=== PATIENT | female | born 1995 | race Two or more races ===

== ENCOUNTER 2024-09-22 11:06 | Inpatient (IN) | payer MEDICAID, SELFPAY ==
[2024-09-21 12:03] LABS: Basophils # (Auto) 0.0 Thou/mm3 (0.0-0.2); Basophils % (Auto) 0 % (0-2.5); Eosinophils # (Auto) 0.0 Thou/mm3 (0.0-0.5); Eosinophils % (Auto) 0 % (0-10); Hematocrit 38.6 % (36.0-46.0); Hemoglobin 13.5 g/dL (12.0-16.0); Immature Granulocytes Auto 0.08 Thou/mm3 (0.00-0.00); Lymphocytes # (Auto) 1.8 Thou/mm3 (1.0-4.8); Lymphocytes % (Auto) 22 % (10-50); Mean Corpuscular HGB Conc 35.0 g/dl (31.0-37.0); Mean Corpuscular Hemoglobin 30.2 pg (25.0-35.0); Mean Corpuscular Volume 86 fL (80-100); Monocytes # (Auto) 0.5 Thou/mm3 (0.0-0.8); Monocytes % (Auto) 6 % (0-12); Neutrophils # (Auto) 6.1 Thou/mm3 (1.8-7.7); Neutrophils % (Auto) 71 % (37-80); Nucleated Red Blood Cell # 0.00 Thou/mm3 (0.00-0.00); Nucleated Red Blood Cell % 0 /100 WBC (0); Platelet Count 186 Thou/mm3 (140-440); RDW Standard Deviation 45.9 fL (36.4-46.3); Red Blood Count 4.47 Miln/mm3 (4.00-5.20); White Blood Count 8.5 Thou/mm3 (3.6-11.0)
[2024-09-21 12:18] LABS: INR 1.0 (0.9-1.3); Partial Thromboplastin Time 27.0 Seconds (22.0-36.0); Prothrombin Time 11.1 Seconds (9.0-12.2)
[2024-09-21 12:36] LABS: Alanine Aminotransferase 12 U/L (10-49); Albumin, Serum 4.2 gm/dL (3.5-5.0); Albumin/Globulin Ratio 1.4 (1.2-2.2); Alkaline Phosphatase 179 U/L (46-116); Anion Gap 11 (7-16); Aspartate Amino Transferase 20 U/L (0-34); BUN/Creatinine Ratio 11 Ratio (12-20); Bilirubin,Total 0.6 mg/dL (0.3-1.2); Blood Urea Nitrogen 8 mg/dL (9-23); Calcium 9.5 mg/dL (8.3-10.6); Calcium (Corrected) 9.5 mg/dL (8.5-10.1); Carbon Dioxide 21.9 mMol/L (20.0-31.0); Chloride 107 mMol/L (98-107); Creatinine (Component) 0.7 mg/dL (0.6-1.3); Globulin 2.9 gm/dL (2.3-3.5); Glucose 95 mg/dL (74-106); Osmolality,Calculated 277 (275-295); Potassium 4.1 mMol/L (3.4-5.1); Sodium 140 mMol/L (136-145); Total Protein 7.1 gm/dL (5.7-8.2); eGFR > 60 See Note
[2024-09-21 12:53] LABS: Syphilis Nonreactive (Nonreactive)
[2024-09-22] VITALS (15 sets, daily range): BP systolic 91–119; BP diastolic 56–78; PULSE 61–116; RESP 14–21; TEMP 36.4–36.8; O2SAT 95–98; BMI 30.5; BMI 31.5
--- NOTE | 2024-09-22 06:15 | ESHP_ITS ---
RE: KELLEE PEÑA : 1995 DATE OF ADMISSION: 09/22/2024 DATE OF SURGERY: 09/22/2024 HISTORY OF PRESENT ILLNESS: This is a 29-year-old 2, para 1-0-0-1 with due date of 09/29/2024 with intrauterine at 39 weeks and 0 days, who presents for repeat delivery. The patient reports normal movement. She denies any leaking or bleeding. She reports occasional contractions. care was complicated by gestational diabetes mellitus, diet controlled. ALLERGIES: NO KNOWN DRUG ALLERGIES. MEDICATIONS: multivitamin 1 p.o. daily. 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 PAST SURGICAL HISTORY: delivery in 2019. SOCIAL HISTORY: She denies any alcohol, drug use, or smoking. OBSTETRIC HISTORY: 01/10/2020, 40 weeks. delivery, 6-pound male, complicated by blood transfusion. FAMILY HISTORY: Denies. REVIEW OF SYSTEMS: She denies any chest pain, palpitations, cough, fever, shortness of breath, or lower extremity pain. PHYSICAL EXAMINATION: VITAL SIGNS: Blood pressure 125/69, heart rate 88, respirations 18, temperature 98.2, weight 172 pounds. HEENT: Oropharynx and sclerae are clear. LUNGS: Clear to auscultation bilaterally. HEART: Regular rate and rhythm. ABDOMEN: Old Pfannenstiel scar noted, gravid, term size. EXTREMITIES: Nontender. SKIN: No gross rashes or lesions. NEUROLOGIC: No focal deficit. ASSESSMENT: Intrauterine at 39 weeks on 09/22/2024. Previous delivery, elects repeat delivery. PLAN: Repeat delivery. Informed consent was obtained. The patient was made aware of the risks, complications, alternatives, and benefits of the proposed procedure and she agrees. DT: 09:17:36 TT: 10:20:00 Ref: [id number] - TID: [id number]
[2024-09-22] MEDS: METOCLOPRAMIDE INJ 5 MG/ML VIAL 2 ML 10 MG IVP (12:19)
[2024-09-22] MEDS: ceFAZolin/D5W 2 GM IV 2 GM/100 ML BAG IV (12:19)
[2024-09-22] MEDS: FAMOTIDINE INJ 10 MG/ML VIAL 2 ML 20 MG IV (12:19)
--- NOTE | 2024-09-22 13:15 | PD.LDDS ---
DS: Providers Provider Date of admission: 09/22/24 11:06 Primary care physician: Physician No Primary/Family Admitting Provider: Saul Hernandez MD Attending Provider on Admission: Saul Hernandez MD Attending Provider on DC: Saul Hernandez MD Discharging Provider: Saul Hernandez MD DS: Diagnosis Problem List Completed Was Problem List Reviewed/Reconciled?: Yes Summary/Hosp Course Peripartum Data Delivery Method: Low Transverse Episiotomy Description: None Laceration Description: see Delivery Summary Procedures: Procedures Operation Date: 09/22/24 12:45 <No data on this case meets the specified criteria> [place] 1: Gender: Female Disposition of : home Time Spent with Patient Time attestation: Total time spent providing and/or coordinating discharge services: Exam Vital Signs Temp Pulse Resp BP O2 Del Method 98.2 F 116 H 18 119/74 Room Air 09/22/24 11:20 09/22/24 11:33 09/22/24 11:20 09/22/24 11:33 09/22/24 11:20 Discharge Plan Plan Patient Disposition: HOME (Self Care) Patient condition on transfer: Stable Prescriptions/Referrals Prescriptions/Med Rec: No Action Vitamin Tablet 1 tab PO QDAY folic acid 0.8 mg Capsule 0.8 mg PO QDAY ferrous sulfate 325 mg (65 mg iron) Tablet 325 mg PO QDAY Referrals: No Primary/Family,Physician [Primary Care Provider] - Patient/Caregiver Discharge Instructions Discharge Activity: activity as tolerated Other Discharge Activity Instructions:: Follow up office 1 week. Education Materials: C Section Dc Print Language: Romanian Stand Alone Forms: Heather Award Info., Patient Portal Info Letter Planned Discharge Date 09/24/24
--- NOTE | 2024-09-22 13:16 | ESOP_ITS ---
Operative Note - CALENDAR CONTROL CLERK BLOOD BANK Procedure Date of procedure: 09/22/24 Procedure Performed: Repeat low-transverse section Via Pfannenstiel skin incision Indication: Intrauterine at 39 weeks and 0 days Previous delivery elects repeat delivery Pre-Op diagnosis: Intrauterine at 39 weeks and 0 days Previous delivery elects repeat delivery Post-Op diagnosis: Intrauterine at 39 weeks and 0 days Previous delivery elects repeat delivery Anesthesia type: Spinal Procedure description: After proper informed consent was obtained. The patient was taken to the operating room where she underwent induction of spinal anesthesia. She was prepped and draped in usual sterile fashion. A timeout was performed. A Pfannenstiel skin incision was made with a scalpel and carried through to the underlying layer of fascia with the Bovie. The fascia was nicked in the midline and the incision extended bilaterally with the Bovie. The inferior aspect the fascia incision was grasped with a Manuel clamps elevated and the underlying rectus muscle dissected off with the Bovie. The superior aspect of the fascial incision was grasped with a Manuel clamps elevated the underlying rectus muscle dissected off with the Bovie. The rectus muscles were in the midline the peritoneum elevated between 2 Chakraborty clamps and entered sharply with the Metzenbaum scissors. The bladder blade was inserted. The low transverse incision was made with the scalpel. The 's head delivered atraumatically. The mouth and nose were suctioned with the bulb suction. The shoulder and body delivered atraumatically. The umbilical cord was clamped and cut after a delay of 30 to 60 seconds. The was handed off to the waiting pediatric team. Cord blood was collected and sent to the lab. The placenta was then removed manually. The uterus was exteriorized and cleared of all clots and debris. The uterine incision was closed with #1-0 chromic catgut suture in a running and locking fashion. A second layer of the same suture was used imbricate the first layer and obtain excellent hemostasis. The vesicouterine peritoneum was closed with 2-0 chromic catgut suture in a running fashion. The fundus was firm the uterus was returned to the abdomen the gutters were cleared of all clots and debris and the peritoneum closed with 0 chromic suture running fashion. The muscle was closed with 0 chromic catgut suture in running fashion. The fascia was closed with 0 Vicryl beginning at each angle and ending in the center in a running fashion. The subcutaneous tissue was irrigated with normal saline solution and found to be hemostatic and closed with 2-0 chromic catgut suture running fashion. The skin was closed with 4-0 Monocryl. A Dermabond Prineo dressing was applied a sterile pressure dressing was applied she tolerated the procedure well. Counts were correct. I discussed with the patient the nature of her condition, the intraoperative findings, the expectation for recovery, all questions were answered. Fluids: crystalloid Urine output (mL): 300 Specimen: none Estimated blood loss (ml): 400 Findings: Viable female , Apgars 9 9 Clear amniotic fluid Normal-appearing uterus fallopian tubes and ovaries Placenta removed complete and intact Complications: none Surgical staff Operation Date: 09/22/24 12:45 <No data on this case meets the specified criteria> Diagnosis Discharge Diagnosis (1) delivery delivered: Status: Acute Problem List Completed Was Problem List Reviewed/Reconciled?: Yes
--- NOTE | 2024-09-22 14:37 | PD.LDDELS ---
Data (Ferro) Data Hx Section: No : 2 Delivery Data (Ferro) Labor Data Induction/Augmentation Agent: None ROM date: 09/22/24 ROM time: 12:50 Amniotic membrane rupture type: Spontaneous Delivery Data EDC: 09/29/24 EDC calculated by:: LMP/early US confirmation Onset of labor date: 09/22/24 Onset of labor time: 12:50 Complete dilation date: 09/22/24 Complete dilation time: 12:50 delivery date: 09/22/24 [place] delivery time: 12:50 Gestational age (weeks): 39 Gestational age (days): 0 Placenta delivery date: 09/22/24 Placenta delivery time: 12:51 Stage 1 total time: Labor - Stage 1 Duration 0 minutes Delivered by: GEILING Delivery nurse: BRENDA Neworn nurse: NASIMA Shredding Specialist at delivery: No Support person(s) at delivery: FOB Other staff at delivery: MARCO NGUYEN, TECH STUDENT TECHS: MONTY CHEN/YANELI DELATORRE MCELC, INTERNET MARKETING SPECIALIST Delivery Method Delivery method: Low Transverse Presentation: Vertex position: OP Anesthesia Type Anesthesia Type: Spinal Anesthesia type: Spinal Placenta Placenta delivery description: Manual Removal Cord blood sent to lab: Yes cord blood collection: Cord Blood Type Episiotomy Episiotomy description: None EBL Estimated blood loss (ml): 400 Umbilical Cord cord description: 3 Vessels Complications Complications: None [place] Data (Ferro) Data order: 1 's gender: Female Identification band number: [id number] weight (gms): 6 lb 15.466 oz Weight (pounds): 6 lbs and 15.5 ozs 1 minute: 9 5 minutes: 9
[2024-09-22] MEDS: OXYTOCIN in NS 20 units 20 UNIT/1,000 ML BAG 125 UNIT IV (18:28)
[2024-09-22 18:52] LABS: Basophils # (Auto) 0.0 Thou/mm3 (0.0-0.2); Basophils % (Auto) 0 % (0-2.5); Eosinophils # (Auto) 0.0 Thou/mm3 (0.0-0.5); Eosinophils % (Auto) 0 % (0-10); Hematocrit 40.0 % (36.0-46.0); Hemoglobin 13.8 g/dL (12.0-16.0); Immature Granulocytes Auto 0.07 Thou/mm3 (0.00-0.00); Lymphocytes # (Auto) 1.2 Thou/mm3 (1.0-4.8); Lymphocytes % (Auto) 7 % (10-50); Mean Corpuscular HGB Conc 34.5 g/dl (31.0-37.0); Mean Corpuscular Hemoglobin 30.7 pg (25.0-35.0); Mean Corpuscular Volume 89 fL (80-100); Monocytes # (Auto) 0.3 Thou/mm3 (0.0-0.8); Monocytes % (Auto) 2 % (0-12); Neutrophils # (Auto) 14.4 Thou/mm3 (1.8-7.7); Neutrophils % (Auto) 90 % (37-80); Nucleated Red Blood Cell # 0.00 Thou/mm3 (0.00-0.00); Nucleated Red Blood Cell % 0 /100 WBC (0); Platelet Count 220 Thou/mm3 (140-440); RDW Standard Deviation 46.8 fL (36.4-46.3); Red Blood Count 4.49 Miln/mm3 (4.00-5.20); White Blood Count 16.0 Thou/mm3 (3.6-11.0)
[2024-09-23 00:29] VITALS: BP 103/62; PULSE 86; RESP 14; TEMP 36.8; O2SAT 96
[2024-09-23 04:46] VITALS: BP 103/62; PULSE 75; RESP 14; TEMP 36.7; O2SAT 95
--- NOTE | 2024-09-23 06:22 | ESPR_ITS ---
RE: KELLEE PEÑA : 1995 DATE OF SERVICE: 09/23/2024 SUBJECTIVE: Postop day #1, patient denies any problem or complaint. She is voiding and ambulating and tolerating her diet and passing flatus. She denies any excessive vaginal bleeding. She denies any dizziness or lightheadedness. She denies any chest pain, palpitations, shortness of breath or lower extremity pain. OBJECTIVE: Vital Signs: Blood pressure 117/68, heart rate 90, respirations 18, temperature is 97.5, and pulse oximetry is 97% on room air. Lungs: Clear to auscultation bilaterally. Heart: Regular rate and rhythm. Abdomen: Dressing dry and intact. Fundus is firm. Hemoglobin predelivery is 13.5, postdelivery is 13.8. ASSESSMENT: Postoperative day #1, status post delivery. PLAN: Remove dressing, discontinue IV, encourage ambulation, support, and possible discharge home tomorrow. DT: 06:02:41 TT: 06:21:00 Ref: [id number] - TID: [id number]
[2024-09-23] MEDS: KETOROLAC INJ 30 MG/ML VIAL IVP (07:18)
[2024-09-23 07:32] VITALS: BP 108/74; PULSE 86; RESP 17; TEMP 36.7; O2SAT 97
[2024-09-23 11:56] VITALS: BP 107/73; PULSE 80; RESP 18; TEMP 36.7; O2SAT 97
[2024-09-23] MEDS: IBUPROFEN TAB 400 MG TABLET 800 MG PO ×2 (15:39→23:09)
[2024-09-23 20:00] VITALS: BP 103/66; PULSE 98; RESP 19; TEMP 36.3; O2SAT 96
[2024-09-24 04:22] VITALS: BP 97/59; PULSE 79; RESP 17; TEMP 36.5; O2SAT 97
[2024-09-24] MEDS: IBUPROFEN TAB 400 MG TABLET 800 MG PO (07:06)
[2024-09-24 08:00] VITALS: BP 102/69; PULSE 75; RESP 17; TEMP 36.6; O2SAT 97
--- NOTE | 2024-09-24 10:46 | PD.LDPPPRG ---
Subjective Subjective Interval history: Patient is postoperative day #2 status post repeat . She is resting comfortably in bed with her at bedside. The baby is doing well. She reports her pain is controlled, she is ambulating, she is tolerating a general diet, her her bleeding is minimal. Her pain is controlled with oral pain medications. Patient would like to go home. Exam Vital Signs Temp Pulse Resp BP Pulse Ox O2 Del Method 97.8 F 75 17 102/69 97 Room Air 09/24/24 08:00 09/24/24 08:00 09/24/24 08:00 09/24/24 08:00 09/24/24 08:00 09/24/24 08:00 Narrative Exam Fundus is firm nontender at umbilicus. Incision is clean dry and intact. Extremities show a minimal amount of edema. No significant erythema. Objective Labs 09/22/24 18:40 09/21/24 11:41 Assessment & Plan Problem List (1) delivery delivered: Status: Acute Assessment and plan: Discharge home post operative day #2 in stable condition. Discharge instructions included no heavy lifting, intercourse, tampons, douching, bathtubs, or exercise x 6 weeks. Follow-up with Dr Hernandez in 2 weeks for an incision check. Time Spent With Patient Time: Total time spent is greater than 50% in coordination of care (as documented) at patient's floor/unit and/or counseling patient: Time with patient: less than 15 minutes
--- NOTE | 2024-09-24 10:52 | PD.LDDS ---
DS: Providers Provider Date of admission: 09/22/24 11:06 Primary care physician: Physician No Primary/Family Admitting Provider: Saul Hernandez MD Attending Provider on Admission: Saul Hernandez MD Consults: 09/22/24 14:03 Referral Routine Comment: Attending Provider on DC: Elvia [facility] MD ([facility]) Discharging Provider: Elvia Miller MD ([facility]) Anticipated date of discharge: 09/24/24 DS: Diagnosis Discharge Diagnosis (1) delivery delivered: Status: Acute Assessment & Plan: Discharged home postoperative day #2 in stable condition. All discharge instructions given. (2) UTI (urinary tract infection): Status: Acute Assessment & Plan: On cephalexin Problem List Completed Was Problem List Reviewed/Reconciled?: Yes Summary/Hosp Course Brief History: The patient is a 29-year-old -0-0-1 prior history of x 1. All care uncomplicated with Dr Hernandez. She presented for an elective repeat section 09/22/2024. She underwent an uncomplicated repeat 09/22/[address] Hernandez. Please see op report for further details. Her postoperative course was uncomplicated. She was ambulating, tolerating a general diet, her bleeding was minimal. She was passing flatus. Her pain was controlled with oral pain medication. Her predelivery hemoglobin was 13.5 postdelivery hemoglobin was unchanged. Patient had been diagnosed with UTI and was to finish her cephalexin . Patient was discharged home postoperative day #2 in stable condition. Peripartum Data Delivery Method: Low Transverse Episiotomy Description: None Procedures: Procedures Operation Date: 09/22/24 12:45 Actual Procedure Side Surgeon p in OB Saul Hernandez MD complications: none Status at Discharge Cognitive/behavioral status at discharge: Patient is alert and oriented x 3 in no apparent distress Functional status at discharge: independent ambulation Overall status at discharge: patient is progressing back to baseline Time Spent with Patient Time attestation: Total time spent providing and/or coordinating discharge services: Time spent: Less than 30 minutes Specific discharge activities: No heavy exercise or lifting x 6 weeks. Pelvic rest x 6 weeks. Exam Vital Signs Temp Pulse Resp BP Pulse Ox O2 Del Method 97.8 F 75 17 102/69 97 Room Air 09/24/24 08:00 09/24/24 08:00 09/24/24 08:00 09/24/24 08:00 09/24/24 08:00 09/24/24 08:00 Narrative Exam Fundus firm nontender. At umbilicus. Incision clean dry and intact. Extremities show no significant edema or erythema. Discharge Plan Plan Patient Disposition: HOME (Self Care) Disposition Comment: Stable Patient condition on transfer: Stable Prescriptions/Referrals Prescriptions/Med Rec: New cephalexin 500 mg capsule 500 mg PO QID Qty: 24 0RF acetaminophen 325 mg Tablet 650 mg PO Q6HR PRN (Reason: Patient rated pain of 3) Qty: 60 0RF cephalexin 250 mg Capsule 500 mg PO QID 7 Days Qty: 56 0RF hydrocodone-acetaminophen 5-325 mg Tablet 2 tab PO Q6HR MDD 8 PRN (Reason: Patient rated pain 9 to 10) Qty: 30 0RF ibuprofen 400 mg Tablet 800 mg PO Q8HR PRN (Reason: Pain Scale 4-6 (Moderate) Qty: 90 0RF Discontinued folic acid 0.8 mg Capsule 0.8 mg PO QDAY ferrous sulfate 325 mg (65 mg iron) Tablet 325 mg PO QDAY Referrals: No Primary/Family,Physician [Primary Care Provider] - Patient/Caregiver Discharge Instructions Discharge Activity: activity as tolerated Other Discharge Activity Instructions:: Follow up office 1 week. Other Discharge Diet Instructions: General Diet as tolerated. Drink lots of water. Education Materials: C Section Dc Print Language: Ghanaian Activity Restrictions/Additional Instructions: No intercourse, douching, exercise, swimming, bathtubs, douching, x 6 weeks Stand Alone Forms: Heather Award Info., Patient Portal Info Letter Discharge Order Discharge Orders: Discharge (Routine); Ordered 09/24/24 Ordered By: Elvia Miller ([facility]) Planned Discharge Date 09/24/24 (2) UTI (urinary tract infection) Qualifiers: Urinary tract infection type: acute cystitis
[2024-09-24 12:15] VITALS: BP 105/69; PULSE 78; RESP 17; TEMP 36.7; O2SAT 98
== END 2024-09-24 13:55 | disposition home or self-care (01) | DRG 540 ==
LOC: S4SX 11:28 → S4NX 12:47
PROVIDERS: Admitting Provider Specialist; Visit Provider Specialist
PROC: 10D00Z1 Extraction of Products of Conception, Low, Open Approach (ICD-10-PCS; CPT 59514; principal; 2024-09-22 12:30)
DX: O34.211 Maternal care for low transverse scar from previous cesarean delivery (principal); O24.420 Gestational diabetes mellitus in childbirth, diet controlled; Z37.0 Single live birth; Z3A.39 39 weeks gestation of pregnancy; O23.13 Infections of bladder in pregnancy, third trimester; N30.00 Acute cystitis without hematuria
CPT/HCPCS: 36415; 80053; 85025; 85610; 85730; 86780; 86850; 86900; 86901; 86923; A4314; A4649; J0689; J1100; J1885; J2210; J2274; J2405; J2590; J2765; J3010; J3490; A9270; J2270